=== PATIENT | male | born 1960 | race Caucasian/White ===

== ENCOUNTER 2020-05-09 04:30 | Emergency (ER) | payer BC ==
[2020-05-09] MEDS ORDERED: HYDROmorphone 1 MG/ML Syringe IVPUSH ONE (04:53)
[2020-05-09] MEDS ORDERED: Sodium Chloride 0.9% 10 ML Syringe FLUSH PRN (04:53)
[2020-05-09] MEDS ORDERED: Sodium Chloride 0.9% 1,000 ML IV ONE (04:53)
[2020-05-09] MEDS ORDERED: Ketorolac 30 MG/ML SDV IVPUSH ONE (05:26)
--- NOTE | 2020-05-09 05:31 | EDM.PDOC ---
ED HPI GENERAL MEDICAL PROBLEM - General Chief Complaint: General Stated Complaint: R flank pain Time Seen by Provider: 05/09/20 05:11 Source of Information: Reports: Patient History Limitations: Reports: No Limitations - History of Present Illness INITIAL COMMENTS - FREE TEXT/NARRATIVE: Patient presents with pain in right flank and right abdomen. At 0230 he awoke with pain radiating from right flank around to RLQ. Pain was 10/10 and now is 8. He has only had bad abdominal pain once before and it was a kidney stone on the left side. This feels similar to that. No history of abdominal surgeries. The last stone passed on its own. He has a little nausea but no vomiting. No fever. Treatments [employer]: Reports: NSAIDS Right Flank Pain Score (Numeric/FACES): 8 - Related Data Allergies Allergy/AdvReac Type Severity Reaction Status Date / Time No Known Drug Allergies Allergy Cannot Verified 05/09/20 05:26 Remember Home Meds: Home Meds Loratadine/Pseudoephedrine [Alavert D-12 Allergy-Sinus] 1 tab PO DAILY 05/09/20 [History] Losartan Potassium 50 mg PO DAILY 05/09/20 [History] Simvastatin 20 mg PO DAILY 05/09/20 [History] ED ROS GENERAL - Review of Systems Review Of Systems: See Below Constitutional: Denies: Fever, Chills, Malaise, Weakness, Decreased Appetite HEENT: Denies: Ear Pain, Throat Pain, Vision Change Respiratory: Denies: Shortness of Breath, Cough Cardiovascular: Denies: Chest Pain, Lightheadedness, Syncope GI/Abdominal: Reports: Abdominal Pain, Nausea. Denies: Constipation, Diarrhea, Vomiting : Reports: Flank Pain. Denies: Dysuria, Frequency Musculoskeletal: Denies: Neck Pain, Shoulder Pain, Arm Pain, Back Pain, Hand Pain, Leg Pain Skin: Denies: Cyanosis, Jaundice, Mottled, Pallor, Diaphoresis Neurological: Denies: Confusion, Dizziness, Headache, Seizure, Syncope, Trouble Speaking, Difficulty Walking Psychiatric: Denies: Agitation, Anxiety, Confusion ED EXAM, GENERAL - Physical Exam Exam: See Below Exam Limited By: No Limitations General Appearance: Alert, WD/WN, No Apparent Distress Eye Exam: Bilateral Eye: EOMI, Normal Inspection, PERRL Ears: Normal External Exam, Hearing Grossly Normal Nose: Normal Inspection, No Blood Throat/Mouth: Normal Inspection, Normal Voice, No Airway Compromise Head: Atraumatic, Normocephalic Neck: Normal Inspection, Full Range of Motion Respiratory/Chest: No Respiratory Distress, Lungs Clear, Normal Breath Sounds, No Accessory Muscle Use Cardiovascular: Regular Rate, Rhythm, No Murmur GI/Abdominal: Soft, No Organomegaly, No Distention, No Abnormal Bruit, No Mass, Guarding (mild on deep palpation), Tender (RLQ). No: Rigid Back Exam: Normal Inspection, Full Range of Motion, CVA Tenderness (R). No: CVA Tenderness (L) Extremities: Normal Inspection, Normal Range of Motion Neurological: Alert, Oriented, Normal Cognition, No Motor/Sensory Deficits Psychiatric: Normal Affect, Normal Mood Skin Exam: Warm, Dry, Intact, Normal Color, No Rash Course - Vital Signs Last Recorded V/S: Last Vital Signs Temp 95.8 F L 05/09/20 05:05 Pulse 60 05/09/20 05:05 Resp 20 05/09/20 05:05 BP 146/96 H 05/09/20 05:05 Pulse Ox 93 L 05/09/20 05:05 - Orders/Labs/Meds Orders: Active Orders 24 hr Category Date Time Status Peripheral IV Care [RC] . DIRECTED Care 05/09/20 04:53 Active Abdomen Pelvis wo Cont [CT] Stat Exams 05/09/20 04:52 Taken Sodium Chloride 0.9% [Saline Flush] Med 05/09/20 04:53 Active 10 ml FLUSH Q8HR PRN Peripheral IV Insertion Adult [OM.PC] Routine Oth 05/09/20 04:53 Ordered Medication Orders Sodium Chloride (Saline Flush) 10 ml FLUSH Q8HR PRN PRN Reason: keep vein open Labs: Laboratory Tests 05/09/20 05/09/20 05/09/20 Range/Units 05:32 05:32 06:30 WBC 9.24 (5.00-10.00) 10^3/uL RBC 5.34 (4.50-6.00) 10^6/uL Hgb 15.9 (13.0-17.0) g/dL Hct 47.1 (40.0-52.0) % MCV 88.2 (82.0-92.0) fL MCH 29.8 (27.0-31.0) pg MCHC 33.8 (32.0-36.0) g/dL RDW 12.6 (11.5-14.5) % Plt Count 172 (150-400) 10^3/uL MPV 10.5 H (7.4-10.4) fL Immature Gran % (Auto) 0.4 (0.0-5.0) % Neut % (Auto) 69.4 (50.0-70.0) % Lymph % (Auto) 23.3 (20.0-40.0) % [place] % (Auto) 6.6 (2.0-8.0) % Eos % (Auto) 0.1 L (1.0-3.0) % Baso % (Auto) 0.2 (0.0-1.0) % Neut # (Auto) 6.41 (2.50-7.00) 10^3/uL Lymph # (Auto) 2.15 (1.00-4.00) 10^3/uL [place] # (Auto) 0.61 (0.10-0.80) 10^3/uL Eos # (Auto) 0.01 L (0.10-0.30) 10^3/uL Baso # (Auto) 0.02 (0.00-0.10) 10^3/uL Immature Gran # (Auto) 0.04 (0.00-0.50) 10^3/uL Sodium 146 H (136-145) mmol/L Potassium 4.2 (3.3-5.3) mmol/L Chloride 107 (98-115) mmol/L Carbon Dioxide 28.8 (21.0-32.0) mmol/L Anion Gap 14.4 (5-15) mmol/L BUN 21 (6-25) mg/dL Creatinine 1.09 (0.51-1.17) mg/dL Est Cr Clr Drug Dosing 81.08 mL/min Estimated GFR (MDRD) > 60 mL/min Glucose 117 H (75 - 99) mg/dL Calcium 8.4 L (8.7-10.3) mg/dL Total Bilirubin 0.4 (0.2-1.0) mg/dL AST 18 (15-37) U/L ALT 31 (12-78) U/L Alkaline Phosphatase 70 (46-116) IU/L Total Protein 6.6 (6.4-8.2) g/dL Albumin 3.47 (3.00-4.80) g/dL Lipase 172 (73-393) U/L Specimen Type . Urine Color Yellow (YELLOW) Urine Appearance Clear (CLEAR) Urine pH 5.5 (5.0-9.0) Ur Specific Lane >= 1.030 (1.005-1.030) Urine Protein Negative (NEGATIVE) mg/dL Urine Glucose (UA) Negative (NEGATIVE) mg/dL Urine Ketones Negative (NEGATIVE) mg/dL Urine Occult Blood Large H (NEGATIVE) Urine Nitrite Negative (NEGATIVE) Urine Bilirubin Negative (NEGATIVE) Urine Urobilinogen 0.2 (0.2-1.0) E.U./dL Ur Leukocyte Esterase Negative (NEGATIVE) Urine RBC 75-100 H (0-5) /HPF Urine WBC 0-5 (0-5) /HPF Ur Epithelial Cells Occasional /LPF Urine Bacteria Occasional (NONE TO FEW) /HPF Urine Mucus Moderate H (NEGATIVE) /LPF Meds: Medications Generic Name Dose Route Start Last Admin Trade Name Freq PRN Reason Stop Dose Admin Sodium Chloride 10 ml 05/09/20 04:53 Saline Flush FLUSH Q8HR PRN keep vein open Discontinued Medications Generic Name Dose Route Start Last Admin Trade Name Freq PRN Reason Stop Dose Admin Hydromorphone HCl 1 mg 05/09/20 04:53 05/09/20 05:16 Dilaudid IVPUSH 05/09/20 04:54 1 mg ONETIME ONE Administration Sodium Chloride 1,000 mls @ 999 mls/hr 05/09/20 04:53 05/09/20 05:21 Normal Saline IV 05/09/20 05:53 999 mls/hr .BOLUS ONE Administration Ketorolac Tromethamine 30 mg 05/09/20 05:26 05/09/20 05:35 Toradol IVPUSH 05/09/20 05:27 30 mg ONETIME ONE Administration - Re-Assessments/Exams Free Text/Narrative Re-Assessment/Exam: 05/09/20 07:17 Patient feeling better. Still some pain but much more tolerable. Will give Rx for hydrocodone prn. Hematuria noted on UA but otherwise labs okay. CT shows a 2x3 mm stone in distal right ureter. Discussed findings and treatment plan with patient. He will strain urine and collect the stone for analysis by his PCP. Pt discharged to home in stable condition. Departure - Departure Time of Disposition: 07:11 Disposition: Home, Self-Care 01 Condition: Good Clinical Impression: Ureteral calculus, right, Ureteral stone with hydronephrosis - Discharge Information Referrals: Azul Miles, [facility] [Primary Care Provider] - Forms: ED Department Discharge Additional Instructions: Drink at least 8 cups of water daily to help pass this stone. Drinking water also helps prevent future stones in most cases. You can take Ibuprofen 600 mg three times a day as needed for continuing pain but wait 12 hours after the ER dose of Toradol to begin the Ibuprofen. You can use the hydrocodone as directed for pain when needed. Strain your urine to catch the stone then take it to your PCP to have lab analysis done to determine stone type which will help in future stone prevention. Follow up with your PCP if worsening or failing to pass in next few days. Return to ER as needed. Sepsis Event Note (ED) - Evaluation Sepsis Screening Result: No Definite Risk - Focused Exam Vital Signs: Vital Signs Temp Pulse Resp BP Pulse Ox 05/09/20 05:05 95.8 F L 60 20 146/96 H 93 L - My Orders Last 24 Hours: My Active Orders 05/09/20 04:52 Abdomen Pelvis wo Cont [CT] Stat 05/09/20 04:53 Peripheral IV Care [RC] . DIRECTED Sodium Chloride 0.9% [Saline Flush] 10 ml FLUSH Q8HR PRN Peripheral IV Insertion Adult [OM.PC] Routine - Assessment/Plan Last 24 Hours: My Active Orders 05/09/20 04:52 Abdomen Pelvis wo Cont [CT] Stat 05/09/20 04:53 Peripheral IV Care [RC] . DIRECTED Sodium Chloride 0.9% [Saline Flush] 10 ml FLUSH Q8HR PRN Peripheral IV Insertion Adult [OM.PC] Routine
[2020-05-09 06:03] LABS: ANION GAP 14.4 mmol/L (5-15); CHLORIDE,CL 107 mmol/L (98-115); SODIUM,NA 146 mmol/L (136-145)
--- NOTE | 2020-05-09 07:56 | CT ---
[id number] CT/CT Abdomen Pelvis WO IV EXAM: ABDOMEN AND PELVIS CT WITHOUT CONTRAST INDICATION: RIGHT FLANK PAIN, HX KIDNEY STONE IN 2003. COMPARISON: None. DISCUSSION: A 2 mm calculus in the distal right ureter results in mild right hydroureteronephrosis. There is a tiny nonobstructing left intrarenal calculus. No left ureteral calculus or left urinary collecting system dilation. Scattered colonic diverticula without evidence of diverticulitis. Degenerative changes in the lower lumbar spine. Small fat-containing umbilical hernia. Unenhanced images of the liver, gallbladder, spleen, pancreas, adrenal glands, small bowel and the appendix are unremarkable. No adenopathy, free air free fluid. IMPRESSION: 1. A 2 mm distal right ureteral calculus results in mild right hydroureteronephrosis. Augie Eng MD 05/09/20 0754 Thank you for allowing us to participate in the care of your patient.
== END 2020-05-09 07:26 | disposition home or self-care (01) ==
LOC: KA.ED 04:30
DX: N13.2 Hydronephrosis with renal and ureteral calculous obstruction (principal); Z79.899 Other long term (current) drug therapy
CPT/HCPCS: 36415; 74176; 80053; 81001; 83690; 85025; 96374; 96375; 99284-25; J1170; J1885; J7030

== ENCOUNTER 2023-07-26 21:42 | Emergency (ER) | payer BC | END 2023-07-26 23:00 | disposition home or self-care (01) | LOC: KA.ED 21:42 | DX: S43.402A Unspecified sprain of left shoulder joint, initial encounter (principal); S40.012A Contusion of left shoulder, initial encounter; I10 Essential (primary) hypertension; E78.00 Pure hypercholesterolemia, unspecified; Z79.899 Other long term (current) drug therapy; W01.198A Fall on same level from slipping, tripping and stumbling with subsequent striking against other object, initial encounter; Y93.02 Activity, running; Y92.009 Unspecified place in unspecified non-institutional (private) residence as the place of occurrence of the external cause | CPT/HCPCS: 73030-LT; 73060-LT; 99283 ==